=== PATIENT | male | born 1985 | race Caucasian/White ===

== ENCOUNTER 2020-09-19 08:56 | Outpatient (RCR) | payer OTHER | END 2020-09-27 12:28 | disposition home or self-care (01) | LOC: WSC 08:56 | DX: M53.3 Sacrococcygeal disorders, not elsewhere classified (principal) ==

== ENCOUNTER → 2023-03-05 | Outpatient (CLI) | payer BC | LOC: MHCPAIN 11:05 | DX: M47.898 Other spondylosis, sacral and sacrococcygeal region (principal); M53.3 Sacrococcygeal disorders, not elsewhere classified; M54.50 Low back pain, unspecified | CPT/HCPCS: G0463 ==

== ENCOUNTER → 2023-06-11 | Outpatient (CLI) | payer BC | LOC: MHCPAIN 10:00 | DX: M54.50 Low back pain, unspecified (principal); M53.3 Sacrococcygeal disorders, not elsewhere classified | CPT/HCPCS: G0463 ==

== ENCOUNTER → 2023-07-28 | Outpatient (CLI) | payer BC ==
[~2023-07-28] MED LIST: ALLEGRA 180MG180 MG PO; ATIVAN 1MG T1 MG/TAB PO; CRESTOR 10MG10 MG PO; FORFIVO XL450 MG PO; MULTIPLE VITAMI1 CAP PO; OMEGA-3 1000 MG1 CAP PO; PRIL40 PO; PRINIVIL10 MG PO
== END ==
LOC: MHCPAIN 11:01
DX: M53.3 Sacrococcygeal disorders, not elsewhere classified (principal); M54.50 Low back pain, unspecified
CPT/HCPCS: G0463

== ENCOUNTER → 2023-10-27 | Outpatient (CLI) | payer BC | LOC: MHCPAIN 11:02 | DX: M53.3 Sacrococcygeal disorders, not elsewhere classified (principal); M54.50 Low back pain, unspecified | CPT/HCPCS: G0463 ==